=== PATIENT | female | born 1955 | race Two or more races ===

== ENCOUNTER 2021-03-05 12:45 | Inpatient (IN) | payer OTHER ==
[~2021-03-05] VITALS: Ht 167.6 cm; Wt 95.3 kg
[2021-03-05] MEDS ORDERED: TOPROL XL50 M1 PO (15:22)
[2021-03-05] MEDS ORDERED: METFORMIN HCL500 M3 PO (15:22)
[2021-03-05] MEDS ORDERED: SYNTHROID150 MCG PO (15:22)
[2021-03-05] MEDS ORDERED: DIOVAN40 MG PO (15:23)
[2021-03-05] MEDS ORDERED: ZOCOR40 MG PO (15:23)
[2021-03-05] MEDS ORDERED: ALTACE1.25 MG PO (15:26)
[2021-03-05] MEDS ORDERED: PANTOPRAZOLE SO20 MG PO (15:27)
[2021-03-05] MEDS ORDERED: MAXIMUM D3325 MCG PO (15:27)
[2021-03-06] MEDS ORDERED: SEMGLEE100 UNIT/1 (11:15)
== END 2021-03-09 10:15 | disposition home or self-care (01) | DRG 741 ==
LOC: O/R 03-06 06:26 → SURG-SUITE 03-06 06:26 → SURH 03-06 08:30 → SURG-SUITE 03-06 15:32
PROVIDERS: ADMIT Specialist; ATTEND Specialist
PROC: 07BC0ZZ Excision of Pelvis Lymphatic, Open Approach (ICD-10-PCS; 2021-03-06)
PROC: 0UT20ZZ Resection of Bilateral Ovaries, Open Approach (ICD-10-PCS; 2021-03-06)
PROC: 0UT70ZZ Resection of Bilateral Fallopian Tubes, Open Approach (ICD-10-PCS; 2021-03-06)
PROC: 0UT90ZZ Resection of Uterus, Open Approach (ICD-10-PCS; principal; 2021-03-06 08:30)
DX: C54.1 Malignant neoplasm of endometrium (principal); D25.1 Intramural leiomyoma of uterus; N72 Inflammatory disease of cervix uteri; I10 Essential (primary) hypertension; E78.5 Hyperlipidemia, unspecified; E03.8 Other specified hypothyroidism